=== PATIENT | female | born 1970 | race Caucasian/White ===

== ENCOUNTER → 2016-07-26 | Outpatient (CLI) | payer BC, OTHER ==
--- NOTE | 2016-07-26 13:04 | US ---
EXAMINATION TYPE: US venous doppler duplex LE RT DATE OF EXAM: 07/26/2016 12:08 PM COMPARISON: NONE CLINICAL HISTORY: RLE R/O DVT, M25.571. right calf tenderness with physician palpation and patient is post right ankle surgery last March for torn tendons SIDE PERFORMED: Right VESSELS IMAGED: Common Femoral Vein Deep Femoral Vein Greater Saphenous Vein * Femoral Vein Popliteal Vein Small Saphenous Vein * Proximal Calf Veins (* superficial vessels) TECHNOLOGIST IMPRESSION: wnl Right Leg: Negative for DVT. Tech findings called to Taylor at Dr Han's [facility] at exam's end No popliteal fossa lesion is seen. IMPRESSION: This examination is negative for DVT within the right leg.
== END | disposition home or self-care (01) ==
LOC: RADUSWWP 11:35
PROVIDERS: ATTEND Orthopaedic Surgery
DX: I80.9 Phlebitis and thrombophlebitis of unspecified site (principal); S93.401D Sprain of unspecified ligament of right ankle, subsequent encounter; M25.371 Other instability, right ankle; Z48.89 Encounter for other specified surgical aftercare

== ENCOUNTER 2022-08-26 10:37 | Day surgery (SDC) | payer BC ==
[~2022-08-26 10:37] MED LIST: LACTATED RINGERS 1,000 ML IV SCH; LIDOCAINE 1% (10MG/ML) FOR IV START INTRADERMA PRN
[2022-08-26 11:12] LABS: Glucose,Whole Blood 125 mg/dL (70-110)
[2022-08-26 11:14] VITALS: TEMP 99.1
[2022-08-26] MEDS ORDERED: LACTATED RINGERS 1,000 ML IV ONE (11:16)
[2022-08-26] MEDS ORDERED: MIDAZOLAM 2 MG/2 ML VIAL ONE (11:17)
[2022-08-26] MEDS ORDERED: IOPAMIDOL M200 10 ML VIAL ONE (11:17)
[2022-08-26] MEDS ORDERED: fentaNYL (PF) 50 MCG/ML 2 ML AMP ONE (11:17)
[2022-08-26] MEDS ORDERED: DEXAMETHASONE SOD PHOSPHATE 10 MG/ML 1 ML VIAL ONE (11:17)
[2022-08-26] MEDS ORDERED: IV FLUID CONTINUATION 1,000 ML IV ONE (11:32)
[2022-08-26 11:34] VITALS: RESP 16
--- NOTE | 2022-08-26 11:35 | P.PCN ---
Date of Procedure: 08/26/22 Procedure(s) Performed: PREOPERATIVE DIAGNOSIS: 1-cervical radiculopathy . 2-cervical herniated disc disease. POSTOPERATIVE DIAGNOSIS: Same as preoperative diagnoses. PROCEDURE 1. Transforaminal epidural steroid injection under fluoroscopic guidance at right C5-6 level. (Fluoroscopy images stored on file in the radiology Department ) 2. Cervical epidurogram . ANESTHESIA: Local with 1% lidocaine 3 ml , moderate sedation with intravenous Versed 2 mg and fentanyle 50 micrograms. Sedation start time :1119 . Sedation. stop time : 1127 . EBL: Minimal PROCEDURE INDICATION: The patient with neck pain and radiculopathy symptoms unresponsive to conservative treatment. PROCEDURE DESCRIPTION / TECHNIQUE: The patient was seen and identified in the preoperative area. Risks, benefits, complications, and alternatives were discussed with the patient. The patient agreed to proceed with the procedure and signed the consent. IV was started, and vital signs were stable. Patient was taken to the OR and time out was completed. The patient was placed in the Lateral position ( right side up ) on procedure table . The right cervical area was prepped and draped in the usual sterile fashion. Critical pause was taken. Vital signs were closely monitored during the procedure. Conscious sedation was used during the procedure to decrease patient s anxiety. Using oblique fluoroscopy, the Foramina at Right C5-6 level was identified, and the skin and deeper tissues just below was localized with 1% lidocaine. Subsequently, a 22-gauge 3.5-inch spinal needle was advanced under a tunneled view fluoroscopic guidance just underneath the Foramina at the right C5-6 Under lateral fluoroscopy, the needle was then advanced to the posterior border of the interforaminal space. After negative aspiration of CSF and blood and with no paresthesias, 1 mL Isovue 200 contrast dye was injected excellent epidurogram and outlining of the nerve root Subsequently, 1.5 mL of block solution contain ing 15 mg Dexamethasone PF was injected. Needle was removed . At the end of the procedure, skin was cleansed, and bandages were applied. COMPLICATIONS:none DISPOSITION / PLANS: The patient was placed in a supine position and transferred to the recovery area in a stable condition for observation. There was no evidence of lower extremity motor or sensory deficit after the procedure. Patient was discharged from the recovery room after meeting discharge criteria. Home discharge instructions were given to the patient by the staff. The patient was reexamined prior to discharge.
--- NOTE | 2022-08-26 11:47 | FL ---
EXAMINATION TYPE: FL guided pain mgmt statistic DATE OF EXAM: 08/26/2022 HISTORY: Fluoroscopy time 4 SEC FL .33295 DAP of fluoroscopy provided. IMPRESSION: 1. Fluoroscopy time.
[2022-08-26 11:48] VITALS: BP 146/88; PULSE 74
== END 2022-08-26 12:03 | disposition home or self-care (01) ==
LOC: ORPAIN 10:37
PROVIDERS: ATTEND Specialist
DX: M50.10 Cervical disc disorder with radiculopathy, unspecified cervical region (principal)
CPT/HCPCS: 81025; 64479; J2250; J1100; J3010; Q9966; 64483

== ENCOUNTER → 2022-09-16 | Outpatient (CLI) | payer BC ==
[2022-09-16 09:03] VITALS: BP 148/100; PULSE 86; RESP 20; TEMP 98.8
--- NOTE | 2022-09-16 09:03 | P.PN ---
Subjective Progress Note Date: 09/16/22 This is follow-up visit this is a 51 years old female with a chronic history of severe neck pain with radiation to the right upper extremity associated with numbness tingling sensation. Pt states pain level is at 6/10 in intensity, constant, localized in the mid to lower cervical spine, in character w shooting pain towards the RUE to the R hand (w numbness). Pain is provoked by lifting, pushing. Pain is alleviated by PT x 2 wks in May 2022 w minimal relief, home stretching regimen, repositioning and rest. Recently we have done a right-sided transforaminal epidural steroid injection at C5 6, patient reported that she had 0 benefit from it she continued to have severe neck pain with radiation to the right upper extremity Physical Examinations : Constitutional : Cooperative , not in acute distress . Neurologic : Cranial nerve II to XII intact. No focal neurological deficits. Psychiatric : alert & oriented x 3. Matching mood & appropriate affect. Judgment & insight intact. Musculoskeletal : Cervical Spine Motor strength in the deltoid and biceps: Normal right side. Normal Left side Motor strength biceps and the wrist extensors: Normal right side . Normal left side Motor strength in the triceps muscle: Normal right side. Normal left side Deep tendon reflexes: Normal at the biceps. Normal at Brachioradialis. Normal at triceps Vertebral body tenderness to deep palpation over C5 Cervical facet loading test: positive bilaterally Spurling test: positive bilaterally Neck distraction test: positive bilaterally Mahogany sign: positive bilaterally Lumbar spine Motor strength lower extremities ,thigh and legs 5/5 Right side , 5/5 Left side Deep tendon reflexes : Normal Knee Jerk. Normal Ankle Jerk Vertebral body tenderness over Lumbar facet Loading Test: positive Right / positive Left Range of motion of the lumbar spine Flexion 30 degrees, extension 10 degrees Straight Leg Raise test: Left/ Right positive at degree Cedric test: positive right / positive left. Severe tenderness over the Sacroiliac joint on the Right / Left sides Gaenslen test: positive bilaterally Seated flexion test: positive bilaterally. Sacral spine : Severe tenderness over the Sacroiliac joint: right side / left side Range of motion: Flexion of the lumbar spine <60 degrees Range of motion: Extension of the lumbar spine <20 degrees Gaenslen's Test positive Eliazar's Test positive Cedric test: positive right side / left side Thigh Thrust Test Sacral Thrust Test Imaging: MRI without contrast of the cervical spine from 06/25/21, reviewed Assessment/ Plan : 1-Cervical radiculopathic ,2-Cervical DDD, 3-Cervical spondylosis She had no benefit from right-sided transforaminal epidural steroid injection at C5 6 Patient could benefit from cervical epidural steroid injection at C6 7 (right paramedian approach ) PQRS Narrative: Smoking Status Former smoker Home Medications: Ambulatory Orders hydroCHLOROthiazide [Hydrodiuril] 25 mg PO DAILY #30 tab 04/30/15 Budesonide/Formoterol Fumarate [Symbicort 160-4.5 Mcg Inhaler] 07/29/22 Empagliflozin [Jardiance] 07/29/22 Semaglutide [Ozempic] 07/29/22 Controlled Substance Measures - Controlled Substance Measures Is patient prescribed a controlled substance at discharge?: No Objective - Vital Signs Vital signs: Intake & Output 09/15/22 09/16/22 09/16/22 18:59 06:59 18:59 Weight 97.522 kg
== END ==
LOC: PNWHC3 08:39
PROVIDERS: ATTEND Specialist
DX: M50.123 Cervical disc disorder at C6-C7 level with radiculopathy (principal); M47.22 Other spondylosis with radiculopathy, cervical region; Z87.891 Personal history of nicotine dependence; Z88.6 Allergy status to analgesic agent; Z79.51 Long term (current) use of inhaled steroids
CPT/HCPCS: 99211

== ENCOUNTER 2022-10-14 11:08 | Day surgery (SDC) | payer BC ==
[~2022-10-14 11:08] MED LIST changes: -LIDOCAINE 1% (10MG/ML) FOR IV START INTRADERMA PRN
[2022-10-14 11:55] LABS: Glucose,Whole Blood 119 mg/dL (70-110)
[2022-10-14 11:57] VITALS: TEMP 97.1
[2022-10-14] MEDS ORDERED: MIDAZOLAM 2 MG/2 ML VIAL ONE (12:22)
[2022-10-14] MEDS ORDERED: IOPAMIDOL M200 10 ML VIAL ONE (12:22)
[2022-10-14] MEDS ORDERED: fentaNYL (PF) 50 MCG/ML 2 ML AMP ONE (12:22)
[2022-10-14] MEDS ORDERED: DEXAMETHASONE SOD PHOSPHATE 10 MG/ML 1 ML VIAL ONE (12:22)
[2022-10-14] MEDS ORDERED: ROPIVACAINE 5 MG/ML 20 ML AMPULE ONE (12:22)
--- NOTE | 2022-10-14 12:42 | P.PCN ---
Date of Procedure: 10/14/22 Description of Procedure: Pre- and Post-operative Diagnosis: Cervical radiculopathy Procedure: Right side C6-C7 Inter-Laminar Cervical Epidural Steroid Injection under biplanar fluoroscopy Surgeon: Beatriz Tirado Anesthesia: Local: 1% Lidocaine, IV sedation : Versed 2 mg, and fentanyl 100 g. Sedation supervision start time : 1227 sedation Supervision end time: 1240 Complications: None. Estimated blood loss: None Specimens removed: None Fluoroscopic image: saved to electronic medical records. Indications for Procedure: The patient has been suffering from neck pain and pain radiating to the upper extremity . Inadequate pain control with pharmacologic regimen. An inter-laminar approach cervical epidural steroid injection was scheduled for the patient. Procedure and Findings: The patient was seen and examined in the holding area. The written informed consent was obtained after explaining the risks, benefits, alternatives of the procedure to the patient. The patient was brought to the procedure room and was placed in the prone position on the operating table. A pillow was placed under the upper chest. Standard anesthesia monitoring was done through out the procedure. Timeout was completed. The skin preparation was done with ChloraPrep 1 and draping was done in usual sterile fashion. Sterile technique was observed throughout the procedure. Under fluoroscopic guidance, the C6-C7 inter-laminar space was identified. 3 ml of 1% Lidocaine was injected with a 25 gauge needle to achieve adequate local anesthesia of the skin and subcutaneous tissue. A 20 gauge, 3.5 inch Tuohy type epidural needle was placed and gradually advanced up to the epidural space using loss of resistance technique and fluoroscopic guidance. Lateral, oblique fluoroscopic views confirm the needle position. No paresthesia was noted. A negative aspiration was confirmed and then 1 ml of Isovue-200 was injected. A good dye spread was seen in the epidural space and it was negative for any intrathecal, intraneural or intravascular spread. A total of 5 ml solution containing 10 mg Dexamethasone, and 4 ml preservative-free Normal Saline was injected slowly with intermittent aspiration. The needle was removed intact, are a was cleaned and bandage was applied. Disposition : The patient tolerated the procedure very well. The patient was transferred to the recovery room and remained stable until discharged home. The patient was given detailed discharge instructions for bleeding, infection, increased pain at the injection site, and was advised to seek immediate medical attention should significant side effects develop. The patient will be followed up with our Pain Clinic within 4 weeks for follow-up visit.
[2022-10-14] MEDS ORDERED: IV FLUID CONTINUATION 800 ML IV ONE (12:43)
[2022-10-14 12:59] LABS: Glucose,Whole Blood 121 mg/dL (70-110)
[2022-10-14 13:05] VITALS: RESP 20
[2022-10-14] MEDS ORDERED: ONDANSETRON 4 MG/2 ML VIAL ONE (13:11)
[2022-10-14] MEDS ORDERED: ONDANSETRON 4 MG/2 ML VIAL IVP ONE (13:15)
[2022-10-14 13:19] VITALS: BP 143/96; PULSE 64
--- NOTE | 2022-10-14 15:12 | FL ---
EXAMINATION TYPE: FL guided pain mgmt statistic DATE OF EXAM: 10/14/2022 HISTORY: Fluoroscopy time Total dose area product (DAP) in mGy*cm? (or similar): 0.72323 IMPRESSION: 1. Fluoroscopy time.
== END 2022-10-14 13:37 | disposition home or self-care (01) ==
LOC: ORPAIN 11:08
DX: M54.12 Radiculopathy, cervical region (principal); I10 Essential (primary) hypertension; E78.5 Hyperlipidemia, unspecified; J45.909 Unspecified asthma, uncomplicated; E11.9 Type 2 diabetes mellitus without complications; Z79.84 Long term (current) use of oral hypoglycemic drugs; Z79.51 Long term (current) use of inhaled steroids; Z79.899 Other long term (current) drug therapy
CPT/HCPCS: 81025; 62321; 99152; J2250; J1100; J2405; J3010; Q9966; J2795

== ENCOUNTER → 2023-09-30 | Outpatient (CLI) | payer BC ==
[2023-09-30 18:29] LABS: HCT 33.4 % (37.2-46.3); HGB 10.3 g/dL (12.0-15.0); MCH 23.4 pg (27.0-32.0); MCHC 30.8 g/dL (32.0-37.0); MCV 75.9 FL (80.0-97.0); Mean Platelet Volume 8.9 FL (9.5-12.2); NRBC Per 100 WBC 0 X 10*3/uL (0.00-0.01); Platelet Count 496 X 10*3/uL (140-440); RDW 16.8 % (11.5-14.5); WBC 7.18 X 10*3/uL (4.50-10.00)
[2023-09-30 18:30] LABS: Blood Urea Nitrogen 8.5 mg/dL (9.0-27.0); Carbon Dioxide 23.8 mmol/L (21.6-31.8); Chloride 103 mmol/L (96-109); Potassium 4.2 mmol/L (3.5-5.5); Sodium 139 mmol/L (135-145)
== END | disposition home or self-care (01) ==
LOC: LABPAT 15:00
PROVIDERS: ATTEND Internal Medicine Interventional Cardiology
DX: Z01.812 Encounter for preprocedural laboratory examination (principal); R94.39 Abnormal result of other cardiovascular function study
CPT/HCPCS: 36415; 80051; 82565; 84520; 85027

== ENCOUNTER 2023-10-05 05:34 | Day surgery (SDC) | payer BC ==
[2023-10-04 11:15] VITALS: BMI 40.7
[2023-10-05] MEDS ORDERED: ALPRAZolam 0.25 MG TAB PO PRN (05:56)
[2023-10-05] MEDS ORDERED: NITROGLYCERIN SL TABS 0.4 MG TAB SUBLINGUAL PRN (05:56)
[2023-10-05] MEDS ORDERED: ALPRAZolam 0.5 MG TAB PO PRN (05:56)
[2023-10-05] MEDS ORDERED: HEPARIN SODIUM,PORCINE (1 ML) 2,500 UNIT in SODIUM CHLORIDE 0.9% 250 ML IRRIGATION PRN (05:56)
[2023-10-05] MEDS ORDERED: HEPARIN SODIUM,PORCINE 10,000 UNIT in SODIUM CHLORIDE 0.9% 1,000 ML IRRIGATION PRN (05:56)
[2023-10-05] MEDS: SODIUM CHLORIDE 0.9% 1,000 ML IV ONE (06:04)
[2023-10-05] MEDS: SODIUM CHLORIDE 0.9% 1,000 ML in EMPTY BAG 1 BAG IV SCH (06:13)
[2023-10-05 06:36] LABS: Glucose,Whole Blood 162 mg/dL (70-110)
[2023-10-05 06:42] LABS: Anisocytosis Slight; Basophils % (A) 0 %; Eosinophils # (A) 0.2 k/uL (0-0.7); Eosinophils % (A) 4 %; HCT 33.5 % (34.0-46.0); HGB 10.4 gm/dL (11.4-16.0); Hypochromasia Slight; Lymphocytes # (A) 1.5 k/uL (1.0-4.8); Lymphocytes % (A) 24 %; MCH 23.7 pg (25.0-35.0); MCHC 31.1 g/dL (31.0-37.0); MCV 76.1 fL (80.0-100.0); Microcytosis Slight; Monocytes # (A) 0.4 k/uL (0-1.0); Monocytes % (A) 6 %; Neutrophils # (A) 3.8 k/uL (1.3-7.7); Neutrophils % (A) 63 %; Platelet Count 498 k/uL (150-450); RDW 16.2 % (11.5-15.5); WBC 6.1 k/uL (3.8-10.6)
[2023-10-05 06:44] VITALS: RESP 16; TEMP 98.1
[2023-10-05] MEDS ORDERED: ASPIRIN 325 MG TAB PO ONE (07:00)
[2023-10-05] MEDS ORDERED: ATORVASTATIN 80 MG TAB PO ONE (07:00)
[2023-10-05] MEDS ORDERED: LIDOCAINE 1% INJ 10MG/ML (20 ML MDV) ONE (07:15)
[2023-10-05] MEDS ORDERED: VERAPAMIL 2.5 MG/ML 2 ML AMP ONE (07:15)
[2023-10-05] MEDS ORDERED: fentaNYL (PF) 50 MCG/ML 2 ML AMP ONE (07:28)
[2023-10-05] MEDS ORDERED: HEPARIN SODIUM 1,000 UN/ML (10ML VL) ONE (07:28)
[2023-10-05] MEDS: LIDOCAINE 1% INJ 10MG/ML (20 ML MDV) SQ ONE (07:40)
[2023-10-05] MEDS: fentaNYL (PF) 50 MCG/1 ML VIAL IVP ONE (07:42)
[2023-10-05] MEDS: VERAPAMIL SYRINGE (5 MG/10 ML) INTRAARTER ONE (07:45)
[2023-10-05] MEDS: HEPARIN SODIUM 1,000 UN/ML (10ML VL) IVP ONE (07:46)
[2023-10-05] MEDS: MIDAZOLAM 2 MG/2 ML VIAL IVP ONE (07:49)
[2023-10-05] MEDS: IOPAMIDOL-370 100ML BTL INTRATHECA ONE (07:58)
[2023-10-05] MEDS ORDERED: RX INFO: IV CONTRAST WAS GIVEN 1 EACH MISC MISCELLANE PRN (08:01)
--- NOTE | 2023-10-05 08:10 | P.CARDCATH ---
Date of Procedure: 10/05/23 Description of Procedure: Cardiac Catheterization: The patient is a 52-year-old female with a history of hypertension, hyperlipidemia and diabetes who has underwent an MPI preoperatively and was found to have evidence of stress-induced ischemia in the anterior wall. Recommendations were made regarding cardiac catheterization, the risks and the complications were discussed with the patient who is in full understanding and agreement. Procedure Description: Patient was brought to cath lab radiology technician in fasting semi-sedated state after receiving Fentanyl and Benadryl achieiving moderate conscious sedated state. Using Xylocaine Anesthesia and modified Seldinger technique, a 6-Trinidadian sheath was introduced in the right radial artery . Subsequently, selective coronary angiography was performed using a 5-Trinidadian 3.5 bend Yuliana catheter and 5 Trinidadian Milo catheter. Multiple views of the coronary artery including hemiaxial views were obtained. The right Yuliana catheter was used to cross the aortic valve and LVEDP was calculated. Following that, catheter and sheath were removed. Hemostasis was obtained with deployment of vascular band . There was no immediate complication. Patient was returned to room in stable condition. Of note, the patient received a total of 5000 units of intravenous heparin as well as intra-arterial verapamil. Findings: Left main: This is a large size vessel trifurcating into LAD, left circumflex and ramus intermedius, left main has no obstructive disease. LAD: This is a large size vessel, reaching to the apex, giving rise to 2 diagonal branch of moderate caliber. The LAD and its branches have no obstructive disease Left circumflex: This is a large nondominant vessel, giving rise to a large obtuse marginal branch. The proximal left circumflex has 10 to 20% plaque with no high-grade stenosis. RCA: This is a dominant vessel, large in caliber bifurcating distally to PDA and PLV. The right coronary artery in the mid segment has a 40% plaque with no high-grade stenosis. Ramus intermedius: This is a large size vessel supplying the lateral wall, the ramus intermedius has no obstructive disease Left Ventriculogram: Not performed Hemodynamics: There was no gradient across aortic valve, LVEDP was 32-34 mmHg Conclusion: 1. Mild disease in the left circumflex 2. Mild disease in the RCA 3. Right dominance 4. Elevated LVEDP Recommendations: I have recommended to continue medical therapy with the aggressive coronary risks modification initiated. The findings and the recommendations were discussed with the patient and the family and they were in full understanding and agreement. Duration of sedation is 18 minutes.
[2023-10-05] MEDS ORDERED: SODIUM CHLORIDE 0.9% 1,000 ML IV SCH (08:15)
[2023-10-05 14:43] VITALS: BP 149/81; PULSE 73
[2023-10-05] MEDS ORDERED: ATORVASTATIN 20 MG TAB PO SCH (21:00)
[2023-10-06] MEDS ORDERED: SYMBICORT 160-4.5 MCG INHALER INHALATION SCH (08:00)
[2023-10-06] MEDS ORDERED: NON FORMULARY DRUG (Semaglutide [Ozempic] 0.25 MG/0.2 ML Each) SQ SCH (08:01)
[2023-10-06] MEDS ORDERED: MULTIVITAMINS, THERA 1 EACH TAB PO SCH (09:00)
[2023-10-06] MEDS ORDERED: LOSARTAN 50 MG TAB PO SCH (09:00)
[2023-10-06] MEDS ORDERED: MONTELUKAST 10 MG TAB PO SCH (09:00)
== END 2023-10-05 12:02 | disposition home or self-care (01) ==
LOC: CATHCVL 05:34
PROVIDERS: ATTEND Internal Medicine Interventional Cardiology
DX: I44.7 Left bundle-branch block, unspecified (principal); I10 Essential (primary) hypertension; E78.2 Mixed hyperlipidemia; E11.9 Type 2 diabetes mellitus without complications; F17.210 Nicotine dependence, cigarettes, uncomplicated; Z82.49 Family history of ischemic heart disease and other diseases of the circulatory system; Z79.84 Long term (current) use of oral hypoglycemic drugs; Z79.899 Other long term (current) drug therapy
CPT/HCPCS: 93458; 85025; 81025; C1769 ×2; C1894; J2250; J2001; J1644; Q9967; J3010

== ENCOUNTER 2023-10-08 17:19 | Emergency (ER) | payer BC ==
[2023-10-08 18:14] VITALS: TEMP 97.8
--- NOTE | 2023-10-08 18:26 | ED ---
General Adult HPI <RommelRob amaya - Last Filed: 10/09/23 01:00> - General Source: patient Mode of arrival: ambulatory Limitations: no limitations <Mariella Berg - Last Filed: 10/09/23 16:31> - General Chief complaint: Nausea/Vomiting/Diarrhea Stated complaint: N/V/D Time Seen by Provider: 10/08/23 17:52 - History of Present Illness Initial comments: 52-year-old female with past medical history of diabetes, hypertension, chronic neck pain with right hand numbness who presents emergency department reporting vertiginous symptoms. States that she had a heart cath 3 days ago. She had an MRI of her neck yesterday for upcoming neck surgery. Today the patient woke and had nausea, 2 episodes of vomiting with room spinning sensation. Feels as if she cannot ambulate without losing her balance and falling. She denies any chest pain or shortness of breath. No abdominal pain. No recent upper respiratory infections. Patient arrives and is extremely hypertensive. States that this is very typical as she has whitecoat syndrome. She also reports that she is supposed to be on losartan but vomited up this morning. She denies any head trauma. No other alleviating, precipitating modifying factors (Mariella Berg) - Related Data Home Medications Medication Instructions Recorded Confirmed Budesonide/Formoterol Fumarate 2 puff INHALATION RT-BID 07/29/22 10/08/23 [Symbicort 160-4.5 Mcg Inhaler] Atorvastatin Calcium 20 mg PO HS 08/20/22 10/08/23 Losartan Potassium 100 mg PO DAILY 08/20/22 10/08/23 Montelukast [Singulair] 10 mg PO HS 08/20/22 10/08/23 Aspirin 325 mg PO DAILY 10/05/23 10/08/23 Ketorolac [Toradol] 10 mg PO Q6HR PRN 10/08/23 10/08/23 Metoprolol Succinate (ER) [Toprol 25 mg PO HS 10/08/23 10/08/23 Xl] Semaglutide [Ozempic] 1 mg SQ TH 10/08/23 10/08/23 metFORMIN HCL ER [Glucophage XR] 500 mg PO BID 10/08/23 10/08/23 Previous Rx's Medication Instructions Recorded Meclizine [Antivert] 25 mg PO TID PRN #15 tab 10/09/23 Allergies Allergy/AdvReac Type Severity Reaction Status Date / Time ibuprofen [From Motrin] Allergy Rash/Hives Verified 10/08/23 19:31 Review of Systems ROS Other: All systems not noted in ROS Statement are negative. <Rob Gama - Last Filed: 10/09/23 01:00> ROS Other: All systems not noted in ROS Statement are negative. <Mariella Berg - Last Filed: 10/09/23 16:31> ROS Statement: Those systems with pertinent positive or pertinent negative responses have been documented in the HPI. Past Medical History Past Medical History: Asthma, Diabetes Mellitus, Hyperlipidemia, Hypertension Additional Past Medical History / Comment(s): rt arm and hand numbness r/t DDD in neck. History of Any Multi-Drug Resistant Organisms: None Reported Past Surgical History: Appendectomy Additional Past Surgical History / Comment(s): rt ankle surgery. Past Anesthesia/Blood Transfusion Reactions: No Reported Reaction Past Psychological History: No Psychological Hx Reported Smoking Status: Never smoker Past Alcohol Use History: None Reported Past Drug Use History: None Reported - Past Family History Mother Family Medical History: Cancer <Mariella Berg - Last Filed: 10/09/23 16:31> General Exam Limitations: no limitations General appearance: alert, in no apparent distress Head exam: Present: atraumatic, normocephalic, normal inspection Eye exam: Present: normal appearance, PERRL, EOMI. Absent: scleral icterus, co njunctival injection, periorbital swelling ENT exam: Present: normal exam, mucous membranes moist Neck exam: Present: normal inspection. Absent: tenderness, meningismus, lymphadenopathy Respiratory exam: Present: normal lung sounds bilaterally. Absent: respiratory distress, wheezes, rales, rhonchi, stridor Cardiovascular Exam: Present: regular rate, normal rhythm, normal heart sounds. Absent: systolic murmur, diastolic murmur, rubs, gallop, clicks GI/Abdominal exam: Present: soft, normal bowel sounds. Absent: distended, tenderness, guarding, rebound, rigid Extremities exam: Present: normal inspection, full ROM, normal capillary refill. Absent: tenderness, pedal edema, joint swelling, calf tenderness Back exam: Present: normal inspection Neurological exam: Present: alert, oriented X3, CN II-XII intact Psychiatric exam: Present: normal affect, normal mood Skin exam: Present: warm, dry, intact, normal color. Absent: rash <Mariella Berg - Last Filed: 10/09/23 16:31> Course Vital Signs 10/08/23 10/08/23 10/08/23 17:33 18:36 20:00 Temperature 97.8 F Pulse Rate 93 89 90 Respiratory 18 18 19 Rate Blood Pressure 191/132 194/97 194/103 O2 Sat by Pulse 97 98 98 Oximetry 10/08/23 10/09/23 22:02 02:00 Temperature Pulse Rate 85 82 Respiratory 18 19 Rate Blood Pressure 187/101 180/99 O2 Sat by Pulse 91 L 91 L Oximetry Medical Decision Making - Lab Data Result diagrams: 10/08/23 18:35 10/08/23 18:35 <Rob Gama - Last Filed: 10/09/23 01:00> - Lab Data Result diagrams: 10/08/23 18:35 10/08/23 18:35 <Mariella Berg Vipin - Last Filed: 10/09/23 16:31> - Medical Decision Making Was pt. sent in by a medical professional or institution (, PA, LITHOPLATE MAKER, urgent care, hospital, or intermediate...) When possible be specific @ -No Did you speak to anyone other than the patient for history (EMS, parent, family, police, friend...)? What history was obtained from this source @ -No Did you review nursing and triage notes (agree or disagree)? Why? @ -I reviewed and agree with nursing and triage notes Were old charts reviewed (outside hosp., previous admission, EMS record, old EKG, old radiological studies, urgent care reports/EKG's, intermediate records)? Report findings @ -I reviewed patient's heart cath from the which demonstrated mild disease Differential Diagnosis (chest pain, altered mental status, abdominal pain women, abdominal pain men, vaginal bleeding, weakness, fever, dyspnea, syncope, headache, dizziness, GI bleed, back pain, seizure, CVA, palpatations, mental health, musculoskeletal)? @ -Differential Dizziness: Benign paroxysmal positional Vertigo, Menieres disease, otitis media, acoustic neuroma, vertebrobasilar insufficiency, cerebellar stroke, encephalitis, hypovolemic, arrhythmia, coronary artery syndrome, anemia, this is not meant to be an all-inclusive list EKG interpreted by me (3pts min.). @ -Yes and demonstrates sinus rhythm with a rate of 77. WA interval 148. QRS 150. QTc of 461. Left bundle branch block. No acute ST segment elevations X-rays interpreted by me (1pt min.). @ -None done CT interpreted by me (1pt min.). @ -Pending at this time U/S interpreted by me (1pt. min.). @ -None done What testing was considered but not performed or refused? (CT, X-rays, U/S, labs)? Why? @ -None What meds were considered but not given or refused? Why? @ -None Did you discuss the management of the patient with other professionals (professionals i.e. , PA, LITHOPLATE MAKER, lab, RT, psych nurse, drug abuse social worker, textile screen printer, teacher, chief accounting officer, family independence case manager)? Give summary @ -Spoke with Dr. Gama - he will take over care of the patient. Was smoking cessation discussed for >3mins.? @ -No Was critical care preformed (if so, how long)? @ -No Were there social determinants of health that impacted care today? How? (Homelessness, low income, unemployed, alcoholism, drug addiction, transportation, low edu. Level, literacy, decrease access to med. care, fpc, rehab)? @ -No Was there de-escalation of care discussed even if they declined (Discuss DNR or withdrawal of care, Hospice)? DNR status @ -No What co-morbidities impacted this encounter? (DM, HTN, Smoking, COPD, CAD, Cancer, CVA, ARF, Chemo, Hep., AIDS, mental health diagnosis, sleep apnea, morbid obesity)? @ -Diabetes Was patient admitted / discharged? Hospital course, mention meds given and route, prescriptions, significant lab abnormalities, going to OR and other pertinent info. @ -Upon arrival patient was placed into room 9. Thorough history and physical exam was performed. IV was established. Laboratory studies are conducted. Patient was given meclizine without any improvement in her symptoms. She is then given a dose of Valium. CT recommended due to recent heart cath. Patient was agreeable to this. CT is pending at this time. Case will be signed out to Dr. Gama Undiagnosed new problem with uncertain prognosis? @ -yes Drug Therapy requiring intensive monitoring for toxicity (Heparin, Nitro, Insulin, Cardizem)? @ -No Were any procedures done? @ -No Diagnosis/symptom? @ -Acute vertigo, accelerated hypertension Acute, or Chronic, or Acute on Chronic? @ -Acute Uncomplicated (without systemic symptoms) or Complicated (systemic symptoms)? @ -Complicated Side effects of treatment? @ -No Exacerbation, Progression, or Severe Exacerbation? @ -No Poses a threat to life or bodily function? How? (Chest pain, USA, MD, pneumonia, PE, COPD, DKA, ARF, appy, cholecystitis, CVA, Diverticulitis, Homicidal, Suicidal, threat to staff... and all critical care pts) @ -No (Mariella Berg) - Lab Data Lab Results 10/08/23 10/08/23 10/08/23 Range/Units 18:35 18:35 18:35 WBC 7.1 (3.8-10.6) k/uL RBC 4.57 (3.80-5.40) m/uL Hgb 10.8 L (11.4-16.0) gm/dL Hct 34.9 (34.0-46.0) % MCV 76.5 L (80.0-100.0) fL MCH 23.7 L (25.0-35.0) pg MCHC 31.0 (31.0-37.0) g/dL RDW 15.9 H (11.5-15.5) % Plt Count 453 H (150-450) k/uL MPV 7.7 Neutrophils % 73 % Lymphocytes % 18 % Monocytes % 5 % Eosinophils % 2 % Basophils % 0 % Neutrophils # 5.2 (1.3-7.7) k/uL Lymphocytes # 1.3 (1.0-4.8) k/uL Monocytes # 0.4 (0-1.0) k/uL Eosinophils # 0.2 (0-0.7) k/uL Basophils # 0.0 (0-0.2) k/uL Hypochromasia Moderate Microcytosis Slight Sodium 137 (137-145) mmol/L Potassium 4.5 (3.5-5.1) mmol/L Chloride 107 (98-107) mmol/L Carbon Dioxide 21 L (22-30) mmol/L Anion Gap 9 mmol/L BUN 9 (7-17) mg/dL Creatinine 0.72 (0.52-1.04) mg/dL Est GFR (CKD-EPI)AfAm >90 (>60 ml/min/1.73 sqM) Est GFR (CKD-EPI)NonAf >90 (>60 ml/min/1.73 sqM) Glucose 149 H (74-99) mg/dL Calcium 9.1 (8.4-10.2) mg/dL Total Bilirubin 0.4 (0.2-1.3) mg/dL AST 24 (14-36) U/L ALT 25 (4-34) U/L Alkaline Phosphatase 123 (38-126) U/L Total Protein 6.0 L (6.3-8.2) g/dL Albumin 3.4 L (3.5-5.0) g/dL Lipase 89 (23-300) U/L Urine Color Colorless Urine Appearance Clear (Clear) Urine pH 7.0 (5.0-8.0) Ur Specific [place] 1.004 (1.001-1.035) Urine Protein Negative (Negative) Urine Glucose (UA) Negative (Negative) Urine Ketones Negative (Negative) Urine Blood Negative (Negative) Urine Nitrite Negative (Negative) Urine Bilirubin Negative (Negative) Urine Urobilinogen <2.0 (<2.0) mg/dL Ur Leukocyte Esterase Negative (Negative) Disposition Is patient prescribed a controlled substance at d/c from ED?: No <Rob Gama - Last Filed: 10/09/23 01:00> <Mariella Berg - Last Filed: 10/09/23 16:31> Clinical Impression: Vertigo Disposition: HOME SELF-CARE Condition: Good Instructions (If sedation given, give patient instructions): Vertigo (DC) Prescriptions: Meclizine [Antivert] 25 mg PO TID PRN #15 tab PRN Reason: Vertigo Referrals: Mele Gomez MD [Primary Care Provider] - 1-2 days
[2023-10-08] MEDS: SODIUM CHLORIDE 0.9% 1,000 ML IV STA (18:39)
[2023-10-08 18:57] LABS: Basophils % (A) 0 %; Eosinophils # (A) 0.2 k/uL (0-0.7); Eosinophils % (A) 2 %; HCT 34.9 % (34.0-46.0); HGB 10.8 gm/dL (11.4-16.0); Hypochromasia Moderate; Lymphocytes # (A) 1.3 k/uL (1.0-4.8); Lymphocytes % (A) 18 %; MCH 23.7 pg (25.0-35.0); MCV 76.5 fL (80.0-100.0); Mean Platelet Volume 7.7; Microcytosis Slight; Monocytes # (A) 0.4 k/uL (0-1.0); Monocytes % (A) 5 %; Neutrophils # (A) 5.2 k/uL (1.3-7.7); Neutrophils % (A) 73 %; Platelet Count 453 k/uL (150-450); RBC 4.57 m/uL (3.80-5.40); RDW 15.9 % (11.5-15.5); WBC 7.1 k/uL (3.8-10.6)
[2023-10-08] MEDS: MECLIZINE 12.5 MG TAB PO STA (18:57)
[2023-10-08] MEDS: ONDANSETRON 4 MG/2 ML VIAL IVP STA (18:57)
[2023-10-08 19:16] LABS: ALT 25 U/L (4-34); AST 24 U/L (14-36); African American GFR (CKD) >90 (>60 ml/min/1.73 sqM); Albumin 3.4 g/dL (3.5-5.0); Alkaline Phosphatase 123 U/L (38-126); Anion Gap 9 mmol/L; Blood Urea Nitrogen 9 mg/dL (7-17); Calcium 9.1 mg/dL (8.4-10.2); Carbon Dioxide 21 mmol/L (22-30); Chloride 107 mmol/L (98-107); Glucose 149 mg/dL (74-99); Lipase 89 U/L (23-300); Non-African American GFR(CKD) >90 (>60 ml/min/1.73 sqM); Potassium 4.5 mmol/L (3.5-5.1); Sodium 137 mmol/L (137-145); Total Bilirubin 0.4 mg/dL (0.2-1.3)
[2023-10-08 19:22] LABS: Appearance,Urine Clear (Clear); Bilirubin,Urine Negative (Negative); Blood,Urine Negative (Negative); Color,Urine Colorless; Glucose,Urine (UA) Negative (Negative); Ketones,Urine Negative (Negative); Leukocyte Esterase,Urine Negative (Negative); Nitrite,Urine Negative (Negative); Protein,Urine Negative (Negative); Specific Gravity,Urine 1.004 (1.001-1.035); Urobilinogen,Urine <2.0 mg/dL (<2.0)
--- NOTE | 2023-10-09 00:31 | CT ---
EXAMINATION TYPE: CT angio head neck DATE OF EXAM: 10/08/2023 8:57 PM COMPARISON: . CLINICAL INDICATION:Female, 52 years old with history of intractable vertigo; PHH, vertigo TECHNIQUE: Noncontrast CT head was performed first with multiplanar reformats. Axially acquired helical CT angiogram of the head and neck was obtained with contrast. Axial images a re supplemented with 3D reconstructions which were post-processed at an independent workstation. NASC ET criteria used. Contrast used: 65ml mL of Isovue 370 without and with IV Contrast, Oral contrast used: None. CT DLP: 1792.5 mGycm, Automated exposure control for dose reduction was used. FINDINGS: CT head: There is mild generalized atrophy and associated prominence of the ventricles and CSF spaces. Mild scattered areas of white matter hypoattenuation, nonspecific but most often on the basis of engineer gas pumping station wally microvascular ischemia. No acute intracranial hemorrhage, midline shift, or mass effect. No loss of maldonado/white distinction. Basilar cisterns are patent. No brain herniation. Orbits and extracranial soft tissues show no acute abnormality. No evidence of acute calvarial fracture. No significant fluid in the paranasal sinuses. Mastoid air c ells are clear. CTA Neck: Examination is limited by motion artifacts. A 3 vessel aortic arch is shown. No significant atherosclerosis or narrowing is seen along the arch or the origins of the branch vessels. No dissection. Right carotid system: Right common carotid is patent. Bifurcation is patent, there is no significant atherosclerotic disea se. No appreciable stenosis of the proximal right ICA. ICA is then patent to the skull base. Left carotid system: Left common carotid is patent, mildly tortuous and redundant in some areas. Bifurcation is patent. Th ere is no significant atherosclerotic disease or narrowing at the bifurcation or proximal ICA. ICA is then patent to the skull base. Vertebral arteries: There is no significant atherosclerotic plaque at the origins of the vertebral ar teries. The vertebrals are then patent to the skull base. The vertebral arteries are codominant. Other: Visualized neck soft tissues show no concerning abnormality. Cervical spine Imaged portions of the lung apices are normal. CTA Head: The vertebral arteries are patent. Basilar artery is patent. Basilar perforation is unremarkable. The re is no aneurysm nor stenosis in the sr. manager corporate communications are visualized. Sizable posterior communicating arteries a re not identified. In the anterior circulation the bilateral intracranial ICAs are patent. The termini appear normal wit h normal bilateral patent ACAs and MCAs. A contrast was not clearly demonstrated. No evidence of large vessel occlusion, significant stenosis, dissection, or AVM in the limits of CTA. The dural venous sinuses appear grossly patent without evidence of thrombosis. IMPRESSION: 1. No acute findings on noncontrast head CT. 2. Patent CTA neck. No evidence of significant atherosclerotic disease or stenosis of the cervical I Jarod. 3. Patent CTA Head. No evidence of large vessel occlusion, significant stenosis, dissection, or AVM in the limits of CTA.
[2023-10-09 02:03] VITALS: BP 180/99; PULSE 82; RESP 19
== END 2023-10-09 01:30 | disposition home or self-care (01) ==
LOC: EC 17:19
DX: R42 Dizziness and giddiness (principal); I10 Essential (primary) hypertension; I44.7 Left bundle-branch block, unspecified; E11.9 Type 2 diabetes mellitus without complications; Z88.6 Allergy status to analgesic agent; Z79.84 Long term (current) use of oral hypoglycemic drugs; Z79.899 Other long term (current) drug therapy
CPT/HCPCS: 36415; 93005; 80053; 83690; 85025; 81003; 70496; 70498; 99285; 96374; 96375; 96361; J3360; J2405; Q9967

== ENCOUNTER 2024-09-06 12:30 | Emergency (ER) | payer BC ==
[2024-09-06 12:52] LABS: Glucose,Whole Blood 544 mg/dL (70-110)
--- NOTE | 2024-09-06 13:11 | ED ---
Recheck HPI - General Chief Complaint: Recheck/Abnormal Lab/Rx Stated Complaint: Hypoglycemia Time Seen by Provider: 09/06/24 13:10 Source: patient, RN notes reviewed Mode of arrival: ambulatory Limitations: no limitations - History of Present Illness Initial Comments: 53-year-old female with history of type 2 diabetes presenting for hyperglycemia. States she was seen by PCP yesterday had blood work done and blood sugar was found to be high. She is asymptomatic. Denies fever, chest pain, nausea, vomiting. She was previously on metformin for her diabetes however took herself off of it 4 months ago. Does not currently take anything for her diabetes. Other health conditions include hypertension and high cholesterol. - Related Data Home Medications Medication Instructions Recorded Confirmed Budesonide/Formoterol Fumarate 2 puff INHALATION RT-BID 07/29/22 09/06/24 [Symbicort 160-4.5 Mcg Inhaler] Atorvastatin Calcium 20 mg PO HS 08/20/22 09/06/24 Losartan Potassium 100 mg PO DAILY 08/20/22 09/06/24 Montelukast [Singulair] 10 mg PO HS 08/20/22 09/06/24 Metoprolol Succinate (ER) [Toprol 25 mg PO DAILY 10/08/23 09/06/24 Xl] Gabapentin [Neurontin] 300 mg PO TID PRN 09/06/24 09/06/24 Spironolactone [Aldactone] 25 mg PO HS 09/06/24 09/06/24 methocarbamoL [Robaxin-750] 750 mg PO Q8H PRN 09/06/24 09/06/24 Allergies Allergy/AdvReac Type Severity Reaction Status Date / Time ibuprofen [From Motrin] Allergy Rash/Hives Verified 09/06/24 13:27 Review of Systems ROS Statement: Those systems with pertinent positive or pertinent negative responses have been documented in the HPI. ROS Other: All systems not noted in ROS Statement are negative. Past Medical History Past Medical History: Asthma, Diabetes Mellitus, Hyperlipidemia, Hypertension Additional Past Medical History / Comment(s): rt arm and hand numbness r/t DDD in neck. History of Any Multi-Drug Resistant Organisms: None Reported Past Surgical History: Appendectomy Additional Past Surgical History / Comment(s): rt ankle surgery. Past Anesthesia/Blood Transfusion Reactions: No Reported Reaction Past Psychological History: No Psychological Hx Reported Smoking Status: Never smoker Past Alcohol Use History: None Reported Past Drug Use History: None Reported - Past Family History Mother Family Medical History: Cancer Additional Family Medical History / Comment(s): Ovarian cancer. General Exam Limitations: no limitations General appearance: alert, in no apparent distress Head exam: Present: atraumatic, normocephalic, normal inspection Eye exam: Present: normal appearance, PERRL, EOMI. Absent: scleral icterus, conjunctival injection, periorbital swelling ENT exam: Present: normal exam, mucous membranes moist Neck exam: Present: normal inspection. Absent: tenderness, meningismus, lymphadenopathy Respiratory exam: Present: normal lung sounds bilaterally. Absent: respiratory distress, wheezes, rales, rhonchi, stridor Cardiovascular Exam: Present: regular rate, normal rhythm, normal heart sounds. Absent: systolic murmur, diastolic murmur, rubs, gallop, clicks GI/Abdominal exam: Present: soft, normal bowel sounds. Absent: distended, tenderness, guarding, rebound, rigid Neurological exam: Present: alert, oriented X3, CN II-XII intact Psychiatric exam: Present: normal affect, normal mood Skin exam: Present: warm, dry, intact, normal color. Absent: rash Course Vital Signs 09/06/24 12:43 Temperature 98.4 F Pulse Rate 92 Respiratory 17 Rate Blood Pressure 160/105 O2 Sat by Pulse 97 Oximetry Medical Decision Making - Medical Decision Making Was pt. sent in by a medical professional or institution (, PA, SHOE WORKER, urgent care, hospital, or correction...) When possible be specific @ -No Did you speak to anyone other than the patient for history (EMS, parent, family, police, friend...)? What history was obtained from this source @ -No Did you review nursing and triage notes (agree or disagree)? Why? @ -I reviewed and agree with nursing and triage notes Were old charts reviewed (outside hosp., previous admission, EMS record, old EKG, old radiological studies, urgent care reports/EKG's, correction records)? Report findings @ -No old charts were reviewed Differential Diagnosis (chest pain, altered mental status, abdominal pain women, abdominal pain men, vaginal bleeding, weakness, fever, dyspnea, syncope, headache, dizziness, GI bleed, back pain, seizure, CVA, palpatations, mental health, musculoskeletal)? @ -Hyperglycemia, DKA, HHS EKG interpreted by me (3pts min.). @ -As above X-rays interpreted by me (1pt min.). @ -None done CT interpreted by me (1pt min.). @ -None done U/S interpreted by me (1pt. min.). @ -None done What testing was considered but not performed or refused? (CT, X-rays, U/S, la bs)? Why? @ -None What meds were considered but not given or refused? Why? @ -None Did you discuss the management of the patient with other professionals (professionals i.e. Dr., PA, SHOE WORKER, lab, RT, psych nurse, social work supervisor, sales representative marine supplies, teacher, benefits officer, family independence case manager)? Give summary @ -No Was smoking cessation discussed for >3mins.? @ -No Was critical care preformed (if so, how long)? @ -No Were there social determinants of health that impacted care today? How? (Homelessness, low income, unemployed, alcoholism, drug addiction, transportation, low edu. Level, literacy, decrease access to med. care, intermediate, rehab)? @ -No Was there de-escalation of care discussed even if they declined (Discuss DNR or withdrawal of care, Hospice)? DNR status @ -No What co-morbidities impacted this encounter? (DM, HTN, Smoking, COPD, CAD, Cancer, CVA, ARF, Chemo, Hep., AIDS, mental health diagnosis, sleep apnea, morbid obesity)? @ -DM Was patient admitted / discharged? Hospital course, mention meds given and route, prescriptions, significant lab abnormalities, going to OR and other pertinent info. @ -Discharge. 53-year-old female presenting for asymptomatic hyperglycemia. Patient had routine blood work done by PCP yesterday and was told to come in due to high blood sugar. Blood glucose in triage 544. Patient was provided with IV fluid bolus. Patient does not appear to be in DKA as white blood cell count 8, acetone is negative, pCO2 46. Blood glucose 594, lactic 2.8, potassium 4.8. Urinalysis reveals 4+ glucose and 1+ ketones. Patient was then provided with 10 units of IV insulin. Upon recheck, blood glucose 338 therefore patient was provided with an additional 4 units of IV insulin. Upon recheck blood glucose reduced to 247. Patient remains asymptomatic. Discussed diagnosis of hyp erglycemia with patient. Appropriate return precautions and follow-up care discussed. Advised to refrain from foods high in carbohydrates and glucose until PCP follow-up. Case was discussed with my ED attending Dr. Carrion Undiagnosed new problem with uncertain prognosis? @ -No Drug Therapy requiring intensive monitoring for toxicity (Heparin, Nitro, Insulin, Cardizem)? @ -No Were any procedures done? @ -No Diagnosis/symptom? @ -Hyperglycemia Acute, or Chronic, or Acute on Chronic? @ -Acute Uncomplicated (without systemic symptoms) or Complicated (systemic symptoms)? @ -Uncomplicated Side effects of treatment? @ -No Exacerbation, Progression, or Severe Exacerbation? @ -No Poses a threat to life or bodily function? How? (Chest pain, USA, CA, pneumonia, PE, COPD, DKA, ARF, appy, cholecystitis, CVA, Diverticulitis, Homicidal, Suicidal, threat to staff... and all critical care pts) @ -Not at this time - Lab Data Result diagrams: 09/06/24 13:18 09/06/24 13:18 Lab Results 09/06/24 09/06/24 09/06/24 Range/Units 12:50 13:18 13:18 WBC 8.4 (3.8-10.6) k/uL RBC 5.49 H (3.80-5.40) m/uL Hgb 16.2 H (11.4-16.0) gm/dL Hct 50.8 H (34.0-46.0) % MCV 92.5 (80.0-100.0) fL MCH 29.4 (25.0-35.0) pg MCHC 31.8 (31.0-37.0) g/dL RDW 12.4 (11.5-15.5) % Plt Count 358 (150-450) k/uL MPV 7.7 Neutrophils % 69 % Lymphocytes % 23 % Monocytes % 4 % Eosinophils % 2 % Basophils % 0 % Neutrophils # 5.8 (1.3-7.7) k/uL Lymphocytes # 2.0 (1.0-4.8) k/uL Monocytes # 0.3 (0-1.0) k/uL Eosinophils # 0.2 (0-0.7) k/uL Basophils # 0.0 (0-0.2) k/uL VBG pH (7.31-7.41) VBG pCO2 (37-51) mmHg VBG HCO3 (24-28) mmol/L Sodium (137-145) mmol/L Potassium (3.5-5.1) mmol/L Chloride (98-107) mmol/L Carbon Dioxide (22-30) mmol/L Anion Gap mmol/L BUN (7-17) mg/dL Creatinine (0.52-1.04) mg/dL Est GFR (CKD-EPI)AfAm (>60 ml/min/1.73 sqM) Est GFR (CKD-EPI)NonAf (>60 ml/min/1.73 sqM) Glucose (74-99) mg/dL POC Glucose (mg/dL) 544 H* (70-110) mg/dL POC Glu Boat Cleaner ID Fetterhoff Lul Lactic Ac Sepsis Rflx Plasma Lactic Acid Jeremiah (0.7-2.0) mmol/L Calcium (8.4-10.2) mg/dL Phosphorus (2.5-4.5) mg/dL Magnesium (1.6-2.3) mg/dL Total Bilirubin (0.2-1.3) mg/dL AST (14-36) U/L ALT (4-34) U/L Alkaline Phosphatase (38-126) U/L Total Protein (6.3-8.2) g/dL Albumin (3.5-5.0) g/dL Urine Color Colorless Urine Appearance Clear (Clear) Urine pH 5.0 (5.0-8.0) Ur Specific Nye 1.034 (1.001-1.035) Urine Protein Negative (Negative) Urine Glucose (UA) 4+ H (Negative) Urine Ketones 1+ H (Negative) Urine Blood Negative (Negative) Urine Nitrite Negative (Negative) Urine Bilirubin Negative (Negative) Urine Urobilinogen <2.0 (<2.0) mg/dL Ur Leukocyte Esterase Trace H (Negative) Urine RBC 7 H (0-5) /hpf Urine WBC 6 H (0-5) /hpf Ur Squamous Epith Cells 4 (0-4) /hpf Urine Mucus Rare H (None) /hpf Acetone, Qual (Negative) 09/06/24 09/06/24 09/06/24 Range/Units 13:18 13:18 13:18 WBC (3.8-10.6) k/uL RBC (3.80-5.40) m/uL Hgb (11.4-16.0) gm/dL Hct (34.0-46.0) % MCV (80.0-100.0) fL MCH (25.0-35.0) pg MCHC (31.0-37.0) g/dL RDW (11.5-15.5) % Plt Count (150-450) k/uL MPV Neutrophils % % Lymphocytes % % Monocytes % % Eosinophils % % Basophils % % Neutrophils # (1.3-7.7) k/uL Lymphocytes # (1.0-4.8) k/uL Monocytes # (0-1.0) k/uL Eosinophils # (0-0.7) k/uL Basophils # (0-0.2) k/uL VBG pH 7.33 (7.31-7.41) VBG pCO2 46 (37-51) mmHg VBG HCO3 24 (24-28) mmol/L Sodium 126 L (137-145) mmol/L Potassium 4.8 (3.5-5.1) mmol/L Chloride 96 L (98-107) mmol/L Carbon Dioxide 23 (22-30) mmol/L Anion Gap 7 mmol/L BUN 13 (7-17) mg/dL Creatinine 0.75 (0.52-1.04) mg/dL Est GFR (CKD-EPI)AfAm >90 (>60 ml/min/1.73 sqM) Est GFR (CKD-EPI)NonAf >90 (>60 ml/min/1.73 sqM) Glucose 594 H* (74-99) mg/dL POC Glucose (mg/dL) (70-110) mg/dL POC Glu Boat Cleaner ID Lactic Ac Sepsis Rflx Plasma Lactic Acid Jeremiah 2.8 H* (0.7-2.0) mmol/L Calcium 9.4 (8.4-10.2) mg/dL Phosphorus 3.1 (2.5-4.5) mg/dL Magnesium 1.9 (1.6-2.3) mg/dL Total Bilirubin 0.6 (0.2-1.3) mg/dL AST 22 (14-36) U/L ALT 30 (4-34) U/L Alkaline Phosphatase 279 H (38-126) U/L Total Protein 7.2 (6.3-8.2) g/dL Albumin 4.4 (3.5-5.0) g/dL Urine Color Urine Appearance (Clear) Urine pH (5.0-8.0) Ur Specific Nye (1.001-1.035) Urine Protein (Negative) Urine Glucose (UA) (Negative) Urine Ketones (Negative) Urine Blood (Negative) Urine Nitrite (Negative) Urine Bilirubin (Negative) Urine Urobilinogen (<2.0) mg/dL Ur Leukocyte Esterase (Negative) Urine RBC (0-5) /hpf Urine WBC (0-5) /hpf Ur Squamous Epith Cells (0-4) /hpf Urine Mucus (None) /hpf Acetone, Qual Negative (Negative) 09/06/24 09/06/24 09/06/24 Range/Units 13:47 15:27 16:50 WBC (3.8-10.6) k/uL RBC (3.80-5.40) m/uL Hgb (11.4-16.0) gm/dL Hct (34.0-46.0) % MCV (80.0-100.0) fL MCH (25.0-35.0) pg MCHC (31.0-37.0) g/dL RDW (11.5-15.5) % Plt Count (150-450) k/uL MPV Neutrophils % % Lymphocytes % % Monocytes % % Eosinophils % % Basophils % % Neutrophils # (1.3-7.7) k/uL Lymphocytes # (1.0-4.8) k/uL Monocytes # (0-1.0) k/uL Eosinophils # (0-0.7) k/uL Basophils # (0-0.2) k/uL VBG pH (7.31-7.41) VBG pCO2 (37-51) mmHg VBG HCO3 (24-28) mmol/L Sodium (137-145) mmol/L Potassium (3.5-5.1) mmol/L Chloride (98-107) mmol/L Carbon Dioxide (22-30) mmol/L Anion Gap mmol/L BUN (7-17) mg/dL Creatinine (0.52-1.04) mg/dL Est GFR (CKD-EPI)AfAm (>60 ml/min/1.73 sqM) Est GFR (CKD-EPI)NonAf (>60 ml/min/1.73 sqM) Glucose (74-99) mg/dL POC Glucose (mg/dL) 338 H 247 H (70-110) mg/dL POC Glu Boat Cleaner ID Jono Ferreira Lactic Ac Sepsis Rflx Y Plasma Lactic Acid Jeremiah (0.7-2.0) mmol/L Calcium (8.4-10.2) mg/dL Phosphorus (2.5-4.5) mg/dL Magnesium (1.6-2.3) mg/dL Total Bilirubin (0.2-1.3) mg/dL AST (14-36) U/L ALT (4-34) U/L Alkaline Phosphatase (38-126) U/L Total Protein (6.3-8.2) g/dL Albumin (3.5-5.0) g/dL Urine Color Urine Appearance (Clear) Urine pH (5.0-8.0) Ur Specific Nye (1.001-1.035) Urine Protein (Negative) Urine Glucose (UA) (Negative) Urine Ketones (Negative) Urine Blood (Negative) Urine Nitrite (Negative) Urine Bilirubin (Negative) Urine Urobilinogen (<2.0) mg/dL Ur Leukocyte Esterase (Negative) Urine RBC (0-5) /hpf Urine WBC (0-5) /hpf Ur Squamous Epith Cells (0-4) /hpf Urine Mucus (None) /hpf Acetone, Qual (Negative) - EKG Data -: EKG Interpreted by Me EKG Comments: EKG reveals left bundle branch block unchanged from September 2023. Ventricular rate 77 bpm, FL interval 143, QRS duration 152, QT/QTc 448/480 Disposition Clinical Impression: Hyperglycemia Disposition: HOME SELF-CARE Condition: Stable Instructions (If sedation given, give patient instructions): Diabetic Hyperglycemia (ED) Additional Instructions: Follow-up with your PCP as discussed. Avoid foods high in carbohydrates and sugar until PCP follow-up. Drink plenty of water. Please return to the [facility] Department if symptoms worsen or any other concerns. Is patient prescribed a controlled substance at d/c from ED?: No Referrals: Julia Costello MD [Primary Care Provider] - 1-2 days Time of Disposition: 17:03
[2024-09-06] MEDS: SODIUM CHLORIDE 0.9% 2,000 ML IV STA (13:14)
[2024-09-06 13:34] LABS: VBG PH 7.33 (7.31-7.41)
[2024-09-06 13:35] LABS: Basophils % (A) 0 %; Eosinophils # (A) 0.2 k/uL (0-0.7); Eosinophils % (A) 2 %; HCT 50.8 % (34.0-46.0); HGB 16.2 gm/dL (11.4-16.0); Lymphocytes % (A) 23 %; MCH 29.4 pg (25.0-35.0); MCHC 31.8 g/dL (31.0-37.0); MCV 92.5 fL (80.0-100.0); Mean Platelet Volume 7.7; Monocytes # (A) 0.3 k/uL (0-1.0); Monocytes % (A) 4 %; Neutrophils # (A) 5.8 k/uL (1.3-7.7); Neutrophils % (A) 69 %; Platelet Count 358 k/uL (150-450); RBC 5.49 m/uL (3.80-5.40); RDW 12.4 % (11.5-15.5); WBC 8.4 k/uL (3.8-10.6)
[2024-09-06 13:49] LABS: Appearance,Urine Clear (Clear); Bilirubin,Urine Negative (Negative); Blood,Urine Negative (Negative); Color,Urine Colorless; Glucose,Urine (UA) 4+ (Negative); Ketones,Urine 1+ (Negative); Leukocyte Esterase,Urine Trace (Negative); Mucus,Urine Rare /hpf; Nitrite,Urine Negative (Negative); Protein,Urine Negative (Negative); RBC,Urine 7 /hpf (0-5); Specific Gravity,Urine 1.034 (1.001-1.035); Squamous Epithelial Cell,Urine 4 /hpf (0-4); Urobilinogen,Urine <2.0 mg/dL (<2.0); WBC,Urine 6 /hpf (0-5)
[2024-09-06 13:57] LABS: ALT 30 U/L (4-34); AST 22 U/L (14-36); African American GFR (CKD) >90 (>60 ml/min/1.73 sqM); Albumin 4.4 g/dL (3.5-5.0); Alkaline Phosphatase 279 U/L (38-126); Anion Gap 7 mmol/L; Blood Urea Nitrogen 13 mg/dL (7-17); Calcium 9.4 mg/dL (8.4-10.2); Carbon Dioxide 23 mmol/L (22-30); Chloride 96 mmol/L (98-107); Magnesium 1.9 mg/dL (1.6-2.3); Non-African American GFR(CKD) >90 (>60 ml/min/1.73 sqM); Phosphorus 3.1 mg/dL (2.5-4.5); Potassium 4.8 mmol/L (3.5-5.1); Sodium 126 mmol/L (137-145); Total Bilirubin 0.6 mg/dL (0.2-1.3); Total Protein 7.2 g/dL (6.3-8.2)
[2024-09-06 14:14] LABS: Glucose 594 mg/dL (74-99)
[2024-09-06] MEDS: INSULIN REGULAR 100 UNIT/ML VIAL (IV) IV ONE ×2 (14:26→15:47)
[2024-09-06 15:28] LABS: Glucose,Whole Blood 338 mg/dL (70-110)
[2024-09-06 16:52] LABS: Glucose,Whole Blood 247 mg/dL (70-110)
[2024-09-06 17:28] VITALS: BP 155/93; PULSE 91; RESP 18; TEMP 98.2
== END 2024-09-06 17:28 | disposition home or self-care (01) ==
LOC: EC 12:30
DX: E11.65 Type 2 diabetes mellitus with hyperglycemia (principal); Z88.6 Allergy status to analgesic agent
CPT/HCPCS: 36415; 80053; 81001; 82009; 82803; 83605; 83735; 84100; 85025; 93005; 96360; 96361; 99285